=== PATIENT | female | born 1930 | race Asian ===

== ENCOUNTER 2016-09-11 09:50 | Emergency (ER) | payer MEDICARE, OTHER ==
[2016-09-11 13:06] LABS: ABSOLUTE LYMPHOCYTES (AUTO) 1.3 10^3/uL (0.5-4.7); ABSOLUTE MONOCYTES (AUTO) 0.2 10^3/uL (0.1-1.4); ABSOLUTE NEUT (AUTO) 5.7 10^3/uL (1.7-8.2); BASOPHILS % (AUTO) 0.3 % (0-2); EOSINOPHILS % (AUTO) 0.5 % (0-6); HEMATOCRIT 40.7 % (36.0-47.0); HGB HCT DIFFERENCE 1.3; LYMPHOCYTES % (AUTO) 18.3 % (13-45); MEAN CORPUSCULAR HEMOGLOBIN 31.4 pg (27.0-33.4); MEAN CORPUSCULAR HGB CONC 34.5 g/dL (32.0-36.0); MEAN CORPUSCULAR VOLUME 91 fl (80-97); MONOCYTES % (AUTO) 2.5 % (3-13); RED BLOOD COUNT 4.47 10^6/uL (3.72-5.28); RED CELL DISTRIBUTION WIDTH 13.1 % (11.5-14.0); SEGMENTED NEUTROPHILS % (AUTO) 78.4 % (42-78); WHITE BLOOD COUNT 7.3 10^3/uL (4.0-10.5)
[2016-09-11 13:26] LABS: ALANINE AMINOTRANSFERASE 23 U/L (9-52); ALBUMIN 4.4 g/dL (3.5-5.0); ALKALINE PHOSPHATASE 111 U/L (38-126); ANION GAP 12 (5-19); ASPARTATE AMINO TRANSFERASE 24 U/L (14-36); BILIRUBIN,DIRECT 0.2 mg/dL (0.0-0.4); BILIRUBIN,TOTAL 1.7 mg/dL (0.2-1.3); BLOOD UREA NITROGEN 22 mg/dL (7-20); CALCIUM 9.9 mg/dL (8.4-10.2); CARBON DIOXIDE 26 mmol/L (22-30); CHLORIDE 102 mmol/L (98-107); CREATININE RESULT 0.79 mg/dL (0.52-1.25); GLUCOSE 133 mg/dL (75-110); POTASSIUM 4.5 mmol/L (3.6-5.0); SODIUM 140.2 mmol/L (137-145); TOTAL PROTEIN 8.1 g/dL (6.3-8.2)
--- NOTE | 2016-09-11 15:19 | ER Document Report ---
ED General - General Chief Complaint: Low Back Pain Stated Complaint: LOW BACK PAIN Mode of Arrival: Ambulatory Information source: Patient Notes: 86 yr old female presents with complaints of chronic back pain worsening radiating to her abdomen. pt denies any fevers or chills, denies any nausea or vomiting TRAVEL OUTSIDE OF THE [place] IN LAST 30 DAYS: No - HPI Onset: Other Onset/Duration: Persistent Quality of pain: Achy Severity: Mild Pain Level: 1 Associated symptoms: Body/muscle aches Exacerbated by: Movement Relieved by: Denies Similar symptoms previously: Yes Recently seen / treated by doctor: Yes - Related Data Allergies/Adverse Reactions: No Known Allergies Allergy (Verified 09/11/16 10:08) Past Medical History - Social History Smoking Status: Never Smoker Cigarette use (# per day): No Chew tobacco use (# tins/day): No Smoking Education Provided: No Frequency of alcohol use: None Drug Abuse: None Family History: Reviewed & Not Pertinent Patient has suicidal ideation: No Patient has homicidal ideation: No - Past Medical History Cardiac Medical History: Reports: Hx Hypertension - "Managed with diet" Renal/ Medical History: Denies: Hx Peritoneal Dialysis Past Surgical History: Reports: Hx Cardiac Surgery - PACEMAKER, Hx Cholecystectomy, Hx Pacemaker - Immunizations Hx Diphtheria, Pertussis, Tetanus Vaccination: Yes Review of Systems - Review of Systems Notes: REVIEW OF SYSTEMS: CONSTITUTIONAL : Denies fever, chills, or sweats. Denies recent illness. EENT: Denies eye, ear, throat, or mouth pain or symptoms. Denies nasal or sinus congestion or discharge. Denies throat, tongue, or mouth swelling or difficulty swallowing. CARDIOVASCULAR: Denies chest pain. Denies palpitations or racing or irregular heart beat. Denies ankle edema. RESPIRATORY: Denies cough, cold, or chest congestion. Denies shortness of breath, difficulty breathing, or wheezing. GASTROINTESTINAL: Denies abdominal pain or distention. Denies nausea, vomiting , or diarrhea. Denies blood in vomitus, stools, or per rectum. Denies black, tarry stools. Denies constipation. GENITOURINARY: Denies difficulty urinating, painful urination, burning, frequency, blood in urine, or discharge. FEMALE GENITOURINARY: Denies vaginal bleeding, heavy or abnormal periods, irregular periods. Denies vaginal discharge or odor. MUSCULOSKELETAL: Admits to back pain SKIN: Denies rash, lesions or sores. HEMATOLOGIC : Denies easy bruising or bleeding. LYMPHATIC: Denies swollen, enlarged glands. NEUROLOGICAL: Denies confusion or altered mental status. Denies passing out or loss of consciousness. Denies dizziness or lightheadedness. Denies headache. Denies weakness or paralysis or loss of use of either side. Denies problems with gait or speech. Denies sensory loss, numbness, or tingling. Denies seizures. PSYCHIATRIC: Denies anxiety or stress. Denies depression, suicidal ideation, or homicidal ideation. ALL OTHER SYSTEMS REVIEWED AND NEGATIVE. Dictation was performed using [employer] voice recognition software PHYSICAL EXAMINATION: GENERAL: Well-appearing, well-nourished and in no acute distress. HEAD: Atraumatic, normocephalic. EYES: Pupils equal round and reactive to light, extraocular movements intact, conjunctiva are normal. ENT: Nares patent, oropharynx clear without exudates. Moist mucous membranes. NECK: Normal range of motion, supple without lymphadenopathy LUNGS: Breath sounds clear to auscultation bilaterally and equal. No wheezes rales or rhonchi. HEART: Regular rate and rhythm without murmurs ABDOMEN: Soft, nontender, nondistended abdomen. No guarding, no rebound. No masses appreciated. Female : deferred Musculoskeletal: Normal range of motion, no pitting or edema. No cyanosis. Mild tenderness on palpation of generalized lumbar and thoracic region NEUROLOGICAL: Cranial nerves grossly intact. Normal speech, normal gait. Normal sensory, motor exams PSYCH: Normal mood, normal affect. SKIN: Warm, Dry, normal turgor, no rashes or lesions noted. Physical Exam - Vital signs Vitals: Temp Pulse Resp BP Pulse Ox 98.6 F 78 14 136/74 H 97 09/11/16 09:58 09/11/16 09:58 09/11/16 09:58 09/11/16 09:58 09/11/16 09:58 Course - Re-evaluation Re-evalutation: 09/11/16 15:[address] was performed to rule out any aortic dissection, instead multiple compression fractures are noted, report was given to family. I will discharge him before pain specialty. Patient is able to ambulate has no neurological deficits and is otherwise stable After performing a Medical Screening Examination, I estimate there is LOW risk for EXPANDING OR RUPTURED ABDOMINAL AORTIC ANEURYSM, CAUDA EQUINA SYNDROME, EPIDURAL MASS LESION, or HERNIATED DISK CAUSING SEVERE SPINAL STENOSIS, thus I consider the discharge disposition reasonable. The patient and I have discussed the diagnosis and risks, and we agree with discharging home and close follow-up. We also discussed returning to the Emergency Department immediately if new or worsening symptoms occur with the understanding that symptoms and presentations can change. We have discussed the symptoms which are most concerning (e.g., saddle anesthesia, urinary or bowel incontinence or retention , changing or worsening pain) that necessitate immediate return. - Vital Signs Vital signs: Temp Pulse Resp BP Pulse Ox 98.6 F 78 14 136/74 H 97 09/11/16 09:58 09/11/16 09:58 09/11/16 09:58 09/11/16 09:58 09/11/16 09:58 - Laboratory Result Diagrams: 09/11/16 12:50 09/11/16 12:50 Laboratory results interpreted by me: 09/11/16 09/11/16 12:50 12:50 Seg Neutrophils % 78.4 H Monocytes % 2.5 L BUN 22 H Glucose 133 H Total Bilirubin 1.7 H - Diagnostic Test Radiology reviewed: Image reviewed, Reports reviewed Discharge - Discharge Clinical Impression: Compression fracture Back pain Qualifiers: Back pain location: low back pain Chronicity: acute Back pain laterality: midline Sciatica presence: without sciatica Qualified Code(s): M54.5 - Low back pain Condition: Stable Disposition: HOME, SELF-CARE Instructions: Low Back Pain ([facility]) Prescriptions: Acetaminophen with Codeine [Tylenol #3 Tablet] 1 each PO Q4HP PRN #30 tablet PRN Reason: Referrals: WILFRED RAMACHANDRAN MD [ACTIVE STAFF] - Follow up tomorrow
[2016-09-11] MEDS ORDERED: ACETAMINOPHEN WITH CODEINE #3 TABLET PO ONE (15:25)
[2016-09-11 16:02] VITALS: BP 151/69
== END 2016-09-11 15:38 | disposition home or self-care (01) ==
LOC: ER 09:50
DX: S22.009A Unspecified fracture of unspecified thoracic vertebra, initial encounter for closed fracture (principal); S32.009A Unspecified fracture of unspecified lumbar vertebra, initial encounter for closed fracture; X58.XXXA Exposure to other specified factors, initial encounter; M54.5 Low back pain; G89.29 Other chronic pain; I10 Essential (primary) hypertension; Z95.0 Presence of cardiac pacemaker
CPT/HCPCS: 99284; 36415; 85025; 80053; 74177; A9270

== ENCOUNTER 2016-12-04 21:29 | Emergency (ER) | payer MEDICARE, OTHER ==
--- NOTE | 2016-12-04 21:48 | ER Document Report ---
ED Medical Screen (RME) - General Chief Complaint: Fall Injury Stated Complaint: FALL,NECK PAIN Time Seen by Provider: 12/04/16 21:43 Notes: 86-year-old female, chief complaint of fall, fell and was found to the bottom of about 5 steps, patient does not remember the fall, as swelling over the right side of her face, complains of head pain, denies other areas of pain. Patient is not on a blood thinner. Family with her. TRAVEL OUTSIDE OF THE [place] IN LAST 30 DAYS: No - Related Data Allergies/Adverse Reactions: No Known Allergies Allergy (Verified 09/11/16 10:08) Past Medical History - Past Medical History Cardiac Medical History: Reports: Hx Hypertension - "Managed with diet" Renal/ Medical History: Denies: Hx Peritoneal Dialysis Past Surgical History: Reports: Hx Cardiac Surgery - PACEMAKER, Hx Cholecystectomy, Hx Pacemaker - Immunizations Hx Diphtheria, Pertussis, Tetanus Vaccination: Yes Physical Exam - Vital signs Vitals: Temp Pulse Resp BP Pulse Ox 97.9 F 14 L 14 101/71 80 L 12/04/16 21:43 12/04/16 21:43 12/04/16 21:43 12/04/16 21:43 12/04/16 21:43 - HEENT Head: Other - right kenyon-orbital swelling - Respiratory Respiratory status: No respiratory distress. No: Tachypnea Breath sounds: Normal. No: Decreased air movement Course - Re-evaluation Re-evalutation: Patient found to be hypoxic, initially reading 75% on room air, elevated to 81% , lung auscultation bilaterally is unremarkable, patient is not in respiratory distress, however attempted with a different pulse oxygenation machine and still reads 81%. Immediately brought back to the room, placed on oxygen and monitor, Dr. Tejada to bedside - Vital Signs Vital signs: Temp Pulse Resp BP Pulse Ox 97.9 F 14 L 14 101/71 80 L 12/04/16 21:43 12/04/16 21:43 12/04/16 21:43 12/04/16 21:43 12/04/16 21:43
--- NOTE | 2016-12-04 22:10 | ER Document Report ---
ED Fall - General Mode of Arrival: Ambulatory Information source: Patient, Parent TRAVEL OUTSIDE OF THE [place] IN LAST 30 DAYS: No - HPI Patient complains to provider of: fall injury Occurred: Just prior to arrival Associated symptoms: Other - See above <YAMILET BELTRAN - Last Filed: 12/05/16 00:06> <BRIEN THOMSON - Last Filed: 12/05/16 01:29> - General Chief Complaint: Fall Injury Stated Complaint: FALL,NECK PAIN Time Seen by Provider: 12/04/16 21:43 Notes: Patient is an 86 year old female, with a past medical history including hypertension and pacemaker, who presents to the emergency department after a fall just prior to arrival. Per granddaughter patient fell down 5 steps and has been complaining of head pain, neck pain, and weakness in left hand. Patient became hypoxic in waiting room. Granddaughter states patient is currently taking amlodipine and carvedilol. PCP: Dr. Delmis Arteaga (YAMILET BELTRAN) - Related data Allergies/Adverse Reactions: No Known Allergies Allergy (Verified 09/11/16 10:08) Past Medical History - General Information source: Patient, Relative - Social History Smoking Status: Never Smoker Chew tobacco use (# tins/day): No Frequency of alcohol use: None Drug Abuse: None Family History: Reviewed & Not Pertinent Patient has suicidal ideation: No Patient has homicidal ideation: No - Past Medical History Cardiac Medical History: Reports: Hx Hypertension - "Managed with diet" Past Surgical History: Reports: Hx Cardiac Surgery - PACEMAKER, Hx Cholecystectomy, Hx Pacemaker - Immunizations Hx Diphtheria, Pertussis, Tetanus Vaccination: Yes <YAMILET BELTRAN - Last Filed: 12/05/16 00:06> Review of Systems - Review of Systems Constitutional: See HPI, Weakness EENT: No symptoms reported Cardiovascular: No symptoms reported Respiratory: No symptoms reported Gastrointestinal: No symptoms reported Genitourinary: No symptoms reported Female Genitourinary: No symptoms reported Musculoskeletal: See HPI, Neck pain Skin: No symptoms reported Hematologic/Lymphatic: No symptoms reported Neurological/Psychological: See HPI, Headaches -: Yes All other systems reviewed and negative <YAMILET BELTRAN - Last Filed: 12/05/16 00:06> Physical Exam <YAMILET BELTRAN - Last Filed: 12/05/16 00:06> <BRIEN THOMSON - Last Filed: 12/05/16 01:29> - Vital signs Vitals: Temp Pulse Resp BP Pulse Ox 97.9 F 99 14 101/71 80 L 12/04/16 21:43 12/04/16 21:43 12/04/16 21:43 12/04/16 21:43 12/04/16 21:43 Notes: Disregard the heart rate of 14 that is recorded. Her initial heart rate was 90. (BRIEN THOMSON) - Notes Notes: GENERAL: No acute distress. HEAD: Periorbital ecchymosis around right eye with superficial abrasion above right eye. No hyphema. EYES: Pupils equal, round, and reactive to light. Extraocular movements intact. ENT: Oral mucosa moist, tongue midline. Trachea midline. Restrained in cervical collar. Dried blood around bilateral nostrils. LUNGS: Clear to auscultation bilaterally, no wheezes, rales, or rhonchi. Hypoxic but in no respiratory distress. Hypoxia quickly resolves with oxygen and able to be weened off to only 3L cannula in course of 1 hour. No tenderness to anterior chest wall. HEART: Regular rate and rhythm, known pacemaker present. 3 out of 6 systolic murmur. No gallops, or rubs. ABDOMEN: Soft, non-tender. Non-distended. Bowel sounds present in all 4 quadrants. Pelvis stable. BACK: Pain in back with forward flexion. EXTREMITIES: Moves all 4 extremities spontaneously. 5/5 strength in right extremities, 4/5 strength in left extremities. No edema. No cyanosis. NEUROLOGICAL: Initially sleepy, able to respond to questions rapidly, oriented person place somewhat disoriented to time, no facial droop. Left sided weakness. PSYCH: Normal affect, normal mood. SKIN: Warm, dry, normal turgor. (YAMILET BELTRAN) Course - Laboratory Result Diagrams: 12/04/16 22:15 12/04/16 22:15 - Consults [facility] Time consulted: 23:50 <YAMILET BELTRAN - Last Filed: 12/05/16 00:06> - Laboratory Result Diagrams: 12/04/16 22:15 12/04/16 22:15 <BRIEN THOMSON - Last Filed: 12/05/16 01:29> - Re-evaluation Re-evalutation: 12/05/16 00:24 On arrival the patient was hypoxic, immediately brought back to a room and seen by me. Patient was placed on a non-rebreather, bedside US did not reveal any pneumothorax. Portable CXR was then performed and also did not reveal PTX. Oxygenation improved with non-rebreather and was able to be tititrated down to 2 L NC over the enxt hour, however she then developed an increasing oxygen requirement and was returned to 4 L NC. Patient was sent for trauma vargas scan and it revealed ICH with skull fracture, C1-C2 fractures and T10 compression fracture as well as sacral fracture. Patient is not altered, has left sided weakness, is in a cervical collar. Discussed findings with patient and family, agreeable to transfer to [facility], discussed with Dr. Parrish, who accepts the patient as a trauma transfer. We are arranging transport now. Patient is NPO. 12/05/16 00:50 CBC shows slight leukocytosis of 13.6, venous blood gases slightly acidotic 7.25 , CMP shows renal failure with a GFR 45, elevated glucose of 316, elevated total and direct bilirubin, cardiac enzymes are indeterminate. 12/05/16 01:28 Helicopter crew at bedside, patient still oxygenating well on 4 L, in mild discomfort but does not want narcotics. Unable to be given anything by mouth given the skull fracture, intracranial hemorrhage and cervical spine fracture. Patient is stable for transport. (BRIEN THOMSON) - Vital Signs Vital signs: Temp Pulse Resp BP Pulse Ox 97.9 F 99 19 103/70 100 12/04/16 21:43 12/04/16 21:43 12/04/16 23:01 12/04/16 23:01 12/04/16 23:01 - Laboratory Laboratory results interpreted by me: 12/04/16 12/04/16 12/04/16 22:15 22:15 22:15 WBC 13.6 H Monocytes % 2.2 L Absolute Neutrophils 9.1 H VBG pH Carbon Dioxide 20 L BUN 26 H Est GFR ( Amer) 55 L Est GFR (Non-Af Amer) 45 L Glucose 316 H Total Bilirubin 1.9 H Direct Bilirubin 0.7 H AST 45 H Creatine Kinase 263 H CK-MB (CK-2) 5.83 H 12/04/16 22:15 WBC Monocytes % Absolute Neutrophils VBG pH 7.25 L Carbon Dioxide BUN Est GFR ( Amer) Est GFR (Non-Af Amer) Glucose Total Bilirubin Direct Bilirubin AST Creatine Kinase CK-MB (CK-2) - Consults [facility] Reason for consultation: 12/04/16 23:50 Discussed patient's condition with [facility] trauma team, Dr. Parrish will accept patient for transfer (YAMILET BELTRAN) Critical Care Note - Critical Care Note Total time excluding time spent on procedures (mins): 45 <BRIEN THOMSON - Last Filed: 12/05/16 01:29> Discharge <YAMILET BELTRAN - Last Filed: 12/05/16 00:06> <BRIEN THOMSON - Last Filed: 12/05/16 01:29> - Discharge Clinical Impression: Acute respiratory failure with hypoxia C1 cervical fracture Qualifiers: Encounter type: initial encounter Fracture type: closed Fracture morphology: lateral mass Fracture alignment: nondisplaced Qualified Code(s): S12.041A - Nondisplaced lateral mass fracture of first cervical vertebra, initial encounter for closed fracture Fall as cause of accidental injury at home as place of occurrence Qualifiers: Encounter type: initial encounter Qualified Code(s): W19.XXXA - Unspecified fall, initial encounter Sacral fracture, closed Qualifiers: Encounter type: initial encounter Zone of sacrum fracture: unspecified portion of sacrum Qualified Code(s): S32.10XA - Unspecified fracture of sacrum, initial encounter for closed fracture Subdural hemorrhage following injury Qualifiers: Encounter type: initial encounter Loss of consciousness presence/duration: with LOC of 30 min or less Qualified Code(s): S06.5X1A - Traumatic subdural hemorrhage with loss of consciousness of 30 minutes or less, initial encounter Traumatic compression fracture of T10 thoracic vertebra Qualifiers: Encounter type: initial encounter Fracture type: closed Qualified Code(s): S22.070A - Wedge compression fracture of T9-T10 vertebra, initial encounter for closed fracture Skull fracture Qualifiers: Encounter type: initial encounter Skull bone/location: sphenoid bone Fracture type: closed Qualified Code(s): S02.19XA - Other fracture of base of skull, initial encounter for closed fracture C2 cervical fracture Qualifiers: Encounter type: initial encounter Fracture type: closed Fracture morphology: type II dens Fracture alignment: posteriorly displaced Qualified Code(s): S12.111A - Posterior displaced Type II dens fracture, initial encounter for closed fracture Condition: Serious Disposition: [facility] Scribe Attestation: 12/05/16 00:55 I personally performed the services described in the documentation, reviewed and edited the documentation which was dictated to the scribe in my presence, and it accurately records my words and actions. (BRIEN THOMSON) Scribe Documentation - Scribe Written by Allan:: allan Deng, 12/04/16, 2224 acting as scribe for :: Mallory <YAMILET BELTRAN - Last Filed: 12/05/16 00:06>
[2016-12-04 22:33] LABS: ABSOLUTE EOSINOPHILS # (AUTO) 0.1 10^3/uL (0.0-0.6); ABSOLUTE LYMPHOCYTES (AUTO) 4.1 10^3/uL (0.5-4.7); ABSOLUTE MONOCYTES (AUTO) 0.3 10^3/uL (0.1-1.4); ABSOLUTE NEUT (AUTO) 9.1 10^3/uL (1.7-8.2); BASOPHILS % (AUTO) 0.1 % (0-2); EOSINOPHILS % (AUTO) 0.6 % (0-6); HEMATOCRIT 38.1 % (36.0-47.0); HEMOGLOBIN 12.4 g/dL (12.0-15.5); HGB HCT DIFFERENCE -0.9; MEAN CORPUSCULAR HEMOGLOBIN 30.9 pg (27.0-33.4); MEAN CORPUSCULAR HGB CONC 32.5 g/dL (32.0-36.0); MEAN CORPUSCULAR VOLUME 95 fl (80-97); MONOCYTES % (AUTO) 2.2 % (3-13); RED BLOOD COUNT 4.01 10^6/uL (3.72-5.28); RED CELL DISTRIBUTION WIDTH 13.3 % (11.5-14.0); SEGMENTED NEUTROPHILS % (AUTO) 67.1 % (42-78); WHITE BLOOD COUNT 13.6 10^3/uL (4.0-10.5)
[2016-12-04 22:49] LABS: ALANINE AMINOTRANSFERASE 32 U/L (9-52); ALBUMIN 3.8 g/dL (3.5-5.0); ALKALINE PHOSPHATASE 115 U/L (38-126); ANION GAP 16 (5-19); ASPARTATE AMINO TRANSFERASE 45 U/L (14-36); BILIRUBIN,DIRECT 0.7 mg/dL (0.0-0.4); BILIRUBIN,TOTAL 1.9 mg/dL (0.2-1.3); BLOOD UREA NITROGEN 26 mg/dL (7-20); CALCIUM 9.7 mg/dL (8.4-10.2); CARBON DIOXIDE 20 mmol/L (22-30); CHLORIDE 104 mmol/L (98-107); CREATINE KINASE 263 U/L (30-135); CREATININE RESULT 1.14 mg/dL (0.52-1.25); GLUCOSE 316 mg/dL (75-110); POTASSIUM 4.3 mmol/L (3.6-5.0); SODIUM 140.1 mmol/L (137-145); TOTAL PROTEIN 7.8 g/dL (6.3-8.2)
[2016-12-04 23:01] LABS: CREATINE KINASE MB 5.83 ng/mL (<4.55)
[2016-12-04 23:04] LABS: TROPONIN I 0.039 ng/mL
--- NOTE | 2016-12-04 23:06 | RADIOLOGY REPORT (SQ) ---
EXAM DESCRIPTION: CHEST SINGLE VIEW COMPLETED DATE/TIME: 12/04/2016 10:10 pm REASON FOR STUDY: fall, hypoxia COMPARISON: 04/16/2013 EXAM PARAMETERS: NUMBER OF VIEWS: One view. TECHNIQUE: Single frontal radiographic view of the chest acquired. RADIATION DOSE: NA LIMITATIONS: None. FINDINGS: LUNGS AND PLEURA: No acute opacities, masses or pneumothorax. No pleural effusion. MEDIASTINUM AND HILAR STRUCTURES: Stable. HEART AND VASCULAR STRUCTURES: Stable. BONES: No acute findings. HARDWARE: Cardiac pacer. OTHER: No other significant finding. IMPRESSION: NO ACUTE RADIOGRAPHIC FINDING IN THE CHEST. TECHNICAL DOCUMENTATION: JOB ID: [id number]
[2016-12-04 23:14] LABS: VENOUS BLOOD HCO3 21.4 mmol/L (20-32); VENOUS BLOOD PCO2 49.6 mmHg (35-63); VENOUS BLOOD PH 7.25 (7.30-7.42)
--- NOTE | 2016-12-04 23:18 | RADIOLOGY REPORT (SQ) ---
EXAM DESCRIPTION: CT HEAD WITHOUT COMPLETED DATE/TIME: 12/04/2016 10:52 pm REASON FOR STUDY: fall, hit head, ? LOC COMPARISON: None. TECHNIQUE: Axial images acquired through the brain without intravenous contrast. Images reviewed wi th bone, brain and subdural windows. Images stored on PACS. All CT scanners at this facility use dose modulation, iterative reconstruction, and/or weight based d osing when appropriate to reduce radiation dose to as low as reasonably achievable (ALARA). [facility]: Dose Right [facility]: CareDose [facility]: Dose Right [facility]: Teradose 4D [facility]: [employer] RADIATION DOSE: Up-to-date CT equipment and radiation dose reduction techniques were employed. CTDIv ol: 64.6 mGy. DLP: 1034 mGy-cm. mGy. LIMITATIONS: None. FINDINGS: There is a small amount of right fronto -temporal subdural hemorrhage. There is pneumocep halus due to the sphenoid-skullbase fracture, near the cavernous sinus. No intracranial mass effect or midline shift. Intra sinus hemorrhage is present in the sphenoid and left maxillary sinuses. The re is soft tissue gas present in the region of the muscles of mastication, also suggesting lateral sp henoid wing fractures bilaterally. No mastoid effusion. OTHER: No other significant finding. IMPRESSION: There is a small amount of right fronto -temporal subdural hemorrhage. There is pneumoc ephalus due to the sphenoid-skullbase fracture, near the cavernous sinus. No intracranial mass effect or midline shift. Intra sinus hemorrhage is present in the sphenoid and left maxillary sinuses. Ther e is soft tissue gas present in the region of the muscles of mastication, also suggesting lateral sph enoid wing fractures bilaterally. No mastoid effusion. TECHNICAL DOCUMENTATION: JOB ID: [id number] Quality ID # [id number]: Final reports with documentation of one or more dose reduction techniques (e.g., Au tomated exposure control, adjustment of the mA and/or kV according to patient size, use of iterative reconstruction technique) 2010 [employer]- All Rights Reserved
--- NOTE | 2016-12-04 23:37 | RADIOLOGY REPORT (SQ) ---
EXAM DESCRIPTION: CT CERVICAL SPINE WITHOUT COMPLETED DATE/TIME: 12/04/2016 10:52 pm REASON FOR STUDY: fall, hit head, ? LOC COMPARISON: None. TECHNIQUE: Axial images acquired through the cervical spine without intravenous contrast. Images re viewed with lung, soft tissue and bone windows. Reconstructed coronal and sagittal MPR images review ed. Images stored on PACS. All CT scanners at this facility use dose modulation, iterative reconstruction, and/or weight based d osing when appropriate to reduce radiation dose to as low as reasonably achievable (ALARA). [facility]: Dose Right [facility]: CareDose [facility]: Dose Right [facility]: Teradose 4D [facility]: Smart [employer] RADIATION DOSE: Up-to-date CT equipment and radiation dose reduction techniques were employed. CTDIv ol: 8.9 mGy. DLP: 183 mGy-cm. mGy. LIMITATIONS: None. FINDINGS: There is a comminuted fracture of the C2 vertebral body with a 9 mm fragment in the centra l posterior body with 3 mm posterior displacement into the spinal canal. Additional C2 comminuted tr ansverse fracture components with 1 - 2 mm of distraction are present in the both lateral masses as w ell as the base of the odontoid, these fractures extend into the foramen transversarium. Posterior a rch fractures are present at the C1 level without significant displacement. The occipital condyles a ppear intact. No other cervical spine fractures are identified. Intracranial gas is present near th e base of the skull at the level of the sphenoid sinus and cavernous sinus suggesting skullbase fract ure. Multiple areas of scattered intraspinal and soft tissue gas are present throughout the neck. OTHER: No other significant finding. IMPRESSION: There is a comminuted fracture of the C2 vertebral body with a 9 mm fragment in the cent ral posterior body with 3 mm posterior displacement into the spinal canal. Additional C2 comminuted transverse fracture components with 1 - 2 mm of distraction are present in the both lateral masses as well as the base of the odontoid, these fractures extend into the foramen transversarium. Posterior arch fractures are present at the C1 level without significant displacement. The occipital condyles appear intact. No other cervical spine fractures are identified. Intracranial gas is present near the base of the skull at the level of the sphenoid sinus and cavernous sinus suggesting skullbase fra cture. Multiple areas of scattered intraspinal and soft tissue gas are present throughout the neck. TECHNICAL DOCUMENTATION: JOB ID: [id number] Quality ID # [id number]: Final reports with documentation of one or more dose reduction techniques (e.g., Au tomated exposure control, adjustment of the mA and/or kV according to patient size, use of iterative reconstruction technique) 2010 [employer]- All Rights Reserved
--- NOTE | 2016-12-04 23:52 | RADIOLOGY REPORT (SQ) ---
EXAM DESCRIPTION: CT CHEST WITH; CT ABD/PELVIS WITH IV ONLY COMPLETED DATE/TIME: 12/04/2016 10:52 pm REASON FOR STUDY: fall down steps, hypoxia; fall down steps CONTRAST TYPE AND DOSE: contrast/concentration: Isovue 370.00 mg/ml; Total Contrast Delivered: 100.0 ml; Total Saline Delivered: 50.0 ml RENAL FUNCTION: Not obtained due to severity of the patient's condition. COMPARISON: August 2016 TECHNIQUE: CT scan of the chest performed using helical scanning technique with dynamic intravenous contrast injection. Images reviewed with lung, soft tissue and bone windows. Reconstructed coronal a nd sagittal MPR images reviewed. All images stored on PACS. All CT scanners at this facility use dose modulation, iterative reconstruction, and/or weight based d osing when appropriate to reduce radiation dose to as low as reasonably achievable (ALARA). [facility]: Dose Right [facility]: CareDose [facility]: Dose Right [facility]: Teradose 4D [facility]: Trampoline RADIATION DOSE: Up-to-date CT equipment and radiation dose reduction techniques were employed. CTDIv ol: 8.1 - 11.2 mGy. DLP: 1012 mGy-cm.. LIMITATIONS: None. FINDINGS: AXILLAE: No adenopathy. CHEST WALL: No masses. No subcutaneous air. LUNGS: Mild subsegmental atelectasis in the left lower lobe. No pneumothorax. No pleural effusion. PLEURA: No effusions. No calcifications. THYROID: No masses or significant asymmetry. HILAR AND MEDIASTINAL STRUCTURES: Small hiatus hernia. No bulky adenopathy. AORTA AND GREAT VESSELS: No aneurysm. No dissection. PULMONARY ARTERIES: No identified pulmonary emboli. Study not optimized for the pulmonary arteries. HEART: No pericardial effusion. HARDWARE AND LIFELINES: None. BONES: New 50% compression of the T10 vertebral body. Multiple additional compression deformities an d old proximal right humerus fracture are present on the prior study from August 2016. OTHER: No other significant finding. IMPRESSION: New 50% compression of the T10 vertebral body. Multiple additional compression deformit ies and old proximal right humerus fracture are present on the prior study from August 2016. No evide nce for mediastinal injury. COMPARISON: None. RADIATION DOSE: Up-to-date CT equipment and radiation dose reduction techniques were employed. CTDIv ol: 8.1 - 11.2 mGy. DLP: 1012 mGy-cm.mGy. TECHNIQUE: CT scan of the abdomen and pelvis performed with intravenous and oral contrast using carine justine scanning technique with dynamic intravenous contrast injection. Images reviewed with lung, soft tissue and bone windows. Reconstructed coronal and sagittal MPR images reviewed. Delayed images for evaluation of the urinary system also acquired and evaluated. All images stored on PACS. All CT scanners at this facility use dose modulation, iterative reconstruction, and/or weight based d osing when appropriate to reduce radiation dose to as low as reasonably achievable (ALARA). [facility]: Dose Right [facility]: SureCare [facility]: Dose Right [facility]: Teradose 4D [facility]: Trampoline FINDINGS: LIVER: Normal size. No masses or dilated ducts. SPLEEN: Normal size. No focal lesions. PANCREAS: No masses. No significant calcifications. No adjacent inflammation or peripancreatic flui d collections. Pancreatic duct not dilated. GALLBLADDER: Choose 2. ADRENAL GLANDS: No significant masses or asymmetry. RIGHT KIDNEY AND URETER: No solid masses. No significant calcification. No hydronephrosis or hydroure ter. LEFT KIDNEY AND URETER: No solid masses. No significant calcification. No hydronephrosis or hydrouret er. AORTA AND VESSELS: No aneurysm. No dissection. Renal arteries, SMA, celiac without stenosis. RETROPERITONEUM: No retroperitoneal adenopathy, hemorrhage or masses. LARGE AND SMALL BOWEL: No dilatation. No masses. No wall thickening. APPENDIX: Normal. ABDOMINAL WALL: No hernia or masses. PERITONEAL CAVITY: No free air. No free fluid. No peritoneal implants or masses. PELVIS: Mild presacral free fluid. Normal bladder. BONES: Nondisplaced fracture of the lower sacral body near the S5 level. OTHER: No other significant finding. IMPRESSION: Nondisplaced fracture of the lower sacral body near the S5 level. No evidence for solid organ injury. TECHNICAL DOCUMENTATION: JOB ID: [id number] Quality ID # [id number]: Final reports with documentation of one or more dose reduction techniques (e.g., Au tomated exposure control, adjustment of the mA and/or kV according to patient size, use of iterative reconstruction technique) 2010 [employer]- All Rights Reserved
[2016-12-05 01:40] VITALS: BP 106/70
--- NOTE | 2016-12-05 10:42 | EKG REPORT ---
SEVERITY:- ABNORMAL ECG - VENTRICULAR-PACED COMPLEXES NONSPECIFIC INTRAVENTRICULAR CONDUCTION DELAY PROBABLE LVH WITH SECONDARY REPOL ABNRM : Confirmed by: Effie Houston MD 05-Dec-2016 10:42:26
== END 2016-12-05 01:35 | disposition short-term general hospital (02) ==
LOC: ER 21:29
DX: J96.01 Acute respiratory failure with hypoxia (principal); S32.10XA Unspecified fracture of sacrum, initial encounter for closed fracture; S12.041A Nondisplaced lateral mass fracture of first cervical vertebra, initial encounter for closed fracture; S06.5X1A Traumatic subdural hemorrhage with loss of consciousness of 30 minutes or less, initial encounter; S22.070A Wedge compression fracture of T9-T10 vertebra, initial encounter for closed fracture; S02.19XA Other fracture of base of skull, initial encounter for closed fracture; S12.111A Posterior displaced Type II dens fracture, initial encounter for closed fracture; R53.1 Weakness; W10.9XXA Fall (on) (from) unspecified stairs and steps, initial encounter; I10 Essential (primary) hypertension; Z95.0 Presence of cardiac pacemaker
CPT/HCPCS: 93005; 99291; 36415; 82553; 82550; 85025; 80053; 84484; 82803; 71010; 70450; 71260; 72125; 74177; 93010; L0120

== ENCOUNTER 2017-01-02 10:37 | Emergency (ER) | payer MEDICARE, OTHER ==
--- NOTE | 2017-01-02 11:39 | ER Document Report ---
ED Neck/Back Problem - General Chief Complaint: Neck Problem Stated Complaint: NECK PAIN Time Seen by Provider: 01/02/17 10:49 Notes: Neck pain is the patient's chief complaint. She fell about a month ago and broke her second cervical vertebrae. She was put in a hard collar here and sent to [facility] where she was kept for 7 days. Family says that they never changed her collar from the when she was given here and it does not fit well and her chin gets rubbed in the back of her head is in pain from the collar not fitting properly. Patient says that she is feeling difficulty breathing, but she is actually discussing the feeling of that collar around her chin and her inability to open her mouth because of the large cervical collar. She has an appointment to follow-up with the neurosurgeons next month, but no neurosurgery is planned. Patient has no complaints of any neurologic deficits or inability to move her limbs or other parts of her body normally. TRAVEL OUTSIDE OF THE [place] IN LAST 30 DAYS: No - Related Data Allergies/Adverse Reactions: No Known Allergies Allergy (Verified 01/02/17 11:01) Past Medical History - Social History Smoking Status: Never Smoker Chew tobacco use (# tins/day): No Frequency of alcohol use: None Drug Abuse: None Family History: Reviewed & Not Pertinent - Past Medical History Cardiac Medical History: Reports: Hx Hypertension - "Managed with diet" Past Surgical History: Reports: Hx Cardiac Surgery - PACEMAKER, Hx Cholecystectomy, Hx Pacemaker - Immunizations Hx Diphtheria, Pertussis, Tetanus Vaccination: Yes Review of Systems - Review of Systems Constitutional: denies: Fever Cardiovascular: denies: Chest pain Respiratory: denies: Cough, Short of breath Gastrointestinal: denies: Abdominal pain, Diarrhea, Nausea, Vomiting Physical Exam - Vital signs Vitals: Temp Pulse Resp BP Pulse Ox 98.5 F 92 18 150/82 H 94 01/02/17 10:49 01/02/17 10:49 01/02/17 10:49 01/02/17 10:49 01/02/17 10:49 Interpretation: Normal - Notes Notes: PHYSICAL EXAMINATION: GENERAL: Well-appearing, in no acute distress. Vital signs are all normal. HEAD: Atraumatic, normocephalic. EYES: Pupils equal round and reactive to light, extraocular movements intact. ENT: oropharynx clear without exudates. Moist mucous membranes. NECK: Normal range of motion, supple. Hard cervical collar in place. The one that she has on appears to be significantly larger than would be felt to be indicated based on the patient's size. She is almost unable to open her mouth at all because of the cervical collar and the way it fits her. LUNGS: Breath sounds clear and equal bilaterally. HEART: Regular rate and rhythm without murmurs. ABDOMEN: Soft, nontender. No guarding or rebound. BACK: No tenderness throughout entire back. EXTREMITIES: Normal range of motion without pain. NEUROLOGICAL: Normal speech, normal gait. Normal sensory, motor, and reflex exams. Awake, alert, and oriented x3. Cranial nerves normal. SKIN: Warm, dry, no rashes. Course - Re-evaluation Re-evalutation: 01/02/17 20:12 Patient was fitted with a smaller cervical collar and says it feels much better and she is very happy with this collar and does not want us to try to get a smaller one still. - Vital Signs Vital signs: Temp Pulse Resp BP Pulse Ox 98.6 F 81 18 149/74 H 94 01/02/17 11:54 01/02/17 11:54 01/02/17 11:54 01/02/17 11:54 01/02/17 11:54 Discharge - Discharge Clinical Impression: Neck pain C2 cervical fracture Qualifiers: Encounter type: subsequent encounter Fracture type: closed Fracture morphology : unspecified fracture morphology Fracture alignment: nondisplaced Fracture healing: with routine healing Qualified Code(s): S12.101D - Unspecified nondisplaced fracture of second cervical vertebra, subsequent encounter for fracture with routine healing Condition: Good Disposition: HOME, SELF-CARE Additional Instructions: Fracture C3. You have a fracture. You have been fitted with a new cervical collar which he say he has eliminated your difficulty breathing and feels more comfortable. Keep your follow-up appointment with the neurosurgeon at [facility] in the coming month. Referrals: REGGIE ALVARADO MD [Primary Care Provider] - Follow up as needed
[2017-01-02 11:56] VITALS: BP 149/74
== END 2017-01-02 11:56 | disposition home or self-care (01) ==
LOC: ER 10:37
DX: S12.101D Unspecified nondisplaced fracture of second cervical vertebra, subsequent encounter for fracture with routine healing (principal); W19.XXXD Unspecified fall, subsequent encounter; I10 Essential (primary) hypertension; Z95.0 Presence of cardiac pacemaker
CPT/HCPCS: 99283; L0172